=== PATIENT | female | born 1950 | race Caucasian/White ===

== ENCOUNTER 2021-11-15 12:02 | Emergency (ER) | payer OTHER ==
[~2021-11-15] VITALS: Ht 162.6 cm; Wt 59.0 kg
[2021-11-15 12:06] VITALS: BP 142/68
[2021-11-15] MEDS ORDERED: IBUP-2070 PO (13:40)
[2021-11-15] MEDS ORDERED: IBUPROFEN 600 MG TABLET PO ONE (14:00)
== END 2021-11-15 14:55 | disposition home or self-care (01) ==
LOC: EDH 12:02
DX: S82.52XA Displaced fracture of medial malleolus of left tibia, initial encounter for closed fracture (principal); W01.0XXA Fall on same level from slipping, tripping and stumbling without subsequent striking against object, initial encounter; Y93.89 Activity, other specified; Y92.89 Other specified places as the place of occurrence of the external cause; Y99.8 Other external cause status
CPT/HCPCS: 29515; 73610